=== PATIENT | male | born 1975 | race Caucasian/White ===

== ENCOUNTER 2018-08-05 17:09 | Emergency (ER) | payer SELFPAY ==
[~2018-08-05] VITALS: Ht 177.8 cm; Wt 100.0 kg
[2018-08-05] MEDS ORDERED: FLEXERIL5 M1 PO (18:14)
[2018-08-05 18:30] VITALS: BP 115/69
== END 2018-08-05 18:30 | disposition home or self-care (01) | DRG 552 ==
LOC: ED 17:09
DX: M54.5 Low back pain (principal); F17.210 Nicotine dependence, cigarettes, uncomplicated; F17.290 Nicotine dependence, other tobacco product, uncomplicated; W01.0XXA Fall on same level from slipping, tripping and stumbling without subsequent striking against object, initial encounter; Y92.009 Unspecified place in unspecified non-institutional (private) residence as the place of occurrence of the external cause